=== PATIENT | male | born 1945 | race Caucasian/White ===

== ENCOUNTER 2017-12-13 12:59 | Emergency (ER) | payer MEDICARE ==
[2017-12-13 14:08] LABS: BASOPHILS % (AUTO) 0.5 %; EOSINOPHILS # (AUTO) 0.1 10^3/uL (0.0-0.7); EOSINOPHILS % (AUTO) 1.5 %; HGB - HEMOGLOBIN 15.4 g/dL (14.0-18.0); LYMPHOCYTES # (AUTO) 1.2 10^3/uL (1.5-3.5); LYMPHOCYTES % (AUTO) 13.4 %; MEAN CORPUSCULAR HGB CONC 33.3 g/dL (32.0-36.0); MEAN PLATELET VOLUME 7.6 fL (7.4-11.4); MONOCYTES # (AUTO) 0.4 10^3/uL (0.0-1.0); MONOCYTES % (AUTO) 4.9 %; NEUTROPHILS # (AUTO) 7.2 10^3/uL (1.5-6.6); NEUTROPHILS % (AUTO) 79.7 %; PLT - PLATELET COUNT 213 10^3/uL (130-450); RED BLOOD COUNT 4.95 10^6/uL (4.70-6.10); RED CELL DISTRIBUTION WIDTH 14.4 % (12.0-15.0)
[2017-12-13 14:25] LABS: BILIRUBIN,URINE NEGATIVE (NEGATIVE); GLUCOSE, URINE (UA) NEGATIVE (NEGATIVE); KETONES,URINE (UA) TRACE mg/dL (NEGATIVE); LEUKOCYTE ESTERASE, URINE TRACE (NEGATIVE); NITRITE,URINE NEGATIVE (NEGATIVE); OCCULT BLOOD,URINE LARGE (NEGATIVE); PH,URINE 5.5 PH (5.0-7.5); PROTEIN,URINE 30 mg/dL (NEGATIVE); UROBILINOGEN,URINE 0.2 (NORMAL) E.U./dL (NORMAL)
[2017-12-13 14:27] LABS: CLARITY,URINE CLOUDY (CLEAR)
[2017-12-13 14:37] LABS: ALBUMIN 3.9 g/dL (3.2-5.5); ALBUMIN/GLOBULIN RATIO 1.1 (1.0-2.2); BILIRUBIN,TOTAL 0.8 mg/dL (0.2-1.0); CREATININE 1.2 mg/dL (0.6-1.2); TOTAL PROTEIN 7.3 g/dL (6.7-8.2)
[2017-12-13 14:41] LABS: BACTERIA,URINE Rare /HPF (None Seen); MUCUS,URINE Marked Strands; RBC,URINE TNTC /HPF (0-5); SQUAMOUS EPITHELIAL CELL,UR RARE Squamous (<= Few)
[2017-12-13 15:08] LABS: CALCIUM 9.3 mg/dL (8.5-10.3)
[2017-12-13] MEDS ORDERED: IBUPROFEN 800 MG TABLET PO STA (15:22)
--- NOTE | 2017-12-13 15:24 | ED Physician Documentation ---
PD HPI ABD PAIN - Stated complaint Stated Complaint: BACK PX/SHAKING - Chief complaint Chief Complaint: Abd Pain - History obtained from History obtained from: Patient, Family () - History of Present Illness Timing - onset: Today (Sudden onset L flank pain to L groin and severe pain for a while, now better, but not gone. Was nauseous and shaky, thse are gone.) - Additional information Additional information: He has had small kidney stones in the past but none recently, never needed see a urologist or have an intervention. Review of Systems Ten Systems: 10 systems reviewed and negative Constitutional: reports: Sweats. denies: Fever, Chills Cardiac: denies: Chest pain / pressure, Palpitations Respiratory: denies: Dyspnea, Cough PD PAST MEDICAL HISTORY - Past Medical History Cardiovascular: Hypertension, High cholesterol Respiratory: Pneumonia - Past Surgical History Past Surgical History: No - Present Medications Home Medications: Ambulatory Orders Medication Instructions Recorded Confirmed Aspirin 81 mg PO DAILY 02/27/16 02/27/16 Mv,Ca,Iron,Min/FA/Phytosterol 1 tab PO DAILY 02/27/16 02/27/16 [[facility] Heart Tab] Simvastatin [Zocor] 40 mg PO DAILY 02/27/16 02/27/16 HYDROcod/ACETAM 5/325 [Canones 5/325] 1 - 2 ea PO Q6H PRN #15 tablet 12/13/17 Ibuprofen [Motrin] 800 mg PO Q8H PRN #30 tablet 12/13/17 Lisinopril 12/13/17 12/13/17 Ondansetron HCl [Zofran] 4 mg PO Q6H PRN #10 tablet 12/13/17 Tamsulosin [Flomax] 0.4 mg PO DAILY #14 capsule 12/13/17 - Allergies Allergies/Adverse Reactions: Allergies Allergy/AdvReac Type Severity Reaction Status Date / Time Penicillins Allergy Rash Verified 12/13/17 13:13 - Social History Does the pt smoke?: No Smoking Status: Never smoker Does the pt drink ETOH?: Yes Does the pt have substance abuse?: No - Family History Family history: reports: Non contributory - Immunizations Immunizations are current?: Yes PD ED PE NORMAL - Vitals Vital signs reviewed: Yes - General General: Alert and oriented X 3, No acute distress - HEENT HEENT: PERRL, EOMI - Neck Neck: Supple, no meningeal sign, No bony TTP - Cardiac Cardiac: RRR, No murmur - Respiratory Respiratory: No respiratory distress, Clear bilaterally - Abdomen Abdomen: Normal bowel sounds, Soft, Non tender - Back Back: No CVA TTP, No spinal TTP - Extremities Extremities: No edema, No calf tenderness / cord - Neuro Neuro: Alert and oriented X 3, Normal speech - Psych Psych: Normal mood, Normal affect Results - Vitals Vitals: Vital Signs - 24 hr 12/13/17 12/13/17 13:11 16:16 Temperature 36 C L Heart Rate 86 82 Respiratory 20 18 Rate Blood Pressure 165/96 H 134/98 H O2 Saturation 100 98 Oxygen O2 Source Room air - Labs Labs: Laboratory Tests 12/13/17 12/13/17 12/13/17 13:25 14:00 14:00 WBC 9.0 RBC 4.95 Hgb 15.4 Hct 46.1 MCV 93.0 MCH 31.0 MCHC 33.3 RDW 14.4 Plt Count 213 MPV 7.6 Neut # (Auto) 7.2 H Lymph # (Auto) 1.[address] # (Auto) 0.4 Eos # (Auto) 0.1 Baso # (Auto) 0.0 Absolute Nucleated RBC 0.00 Nucleated RBC % 0.0 Sodium 136 Potassium 3.6 Chloride 101 Carbon Dioxide 28 Anion Gap 7.0 BUN 25 H Creatinine 1.2 Estimated GFR (MDRD) 60 L Glucose 101 H Calcium 9.3 Total Bilirubin 0.8 AST 19 ALT 17 Alkaline Phosphatase 64 Total Protein 7.3 Albumin 3.9 Globulin 3.4 Albumin/Globulin Ratio 1.1 Lipase 42 Urine Color DARK YELLOW Urine Clarity CLOUDY Urine pH 5.5 Ur Specific [place] 1.025 Urine Protein 30 H Urine Glucose (UA) NEGATIVE Urine Ketones TRACE Urine Occult Blood LARGE H Urine Nitrite NEGATIVE Urine Bilirubin NEGATIVE Urine Urobilinogen 0.2 (NORMAL) Ur Leukocyte Esterase TRACE H Urine RBC TNTC H Urine WBC 4-5 Ur Squamous Epith Cells RARE Squamous Urine Bacteria Rare Urine Mucus Marked Strands Ur Microscopic Review INDICATED Urine Culture Comments INDICATED - Rads (name of study) CT KUB Radiology: EMP read contemporaneously (Mild left hydronephrosis due to a 5 mm calculus near the UV J. Also nonobstructing nephrolithiasis. Incidental findings include diverticulosis and a small hiatal hernia.) PD MEDICAL DECISION MAKING - ED course ED course: 71-year-old gentleman with acute pain episode that seems most consistent with renal colic. Pain mostly gone on arrival here and he was comfortable after ibuprofen. He has Tellez and will follow up with his PCM for referral to a urologist. - Sepsis Event Vital Signs: Vital Signs - 24 hr 12/13/17 12/13/17 13:11 16:16 Temperature 36 C L Heart Rate 86 82 Respiratory 20 18 Rate Blood Pressure 165/96 H 134/98 H O2 Saturation 100 98 Oxygen O2 Source Room air Departure - Departure Disposition: Home, Self Care Clinical Impression: Renal colic Condition: Good Instructions: ED Stone Renal W Colic Prescriptions: HYDROcod/ACETAM 5/325 [Canones 5/325] 1 - 2 ea PO Q6H PRN #15 tablet PRN Reason: Pain Ibuprofen [Motrin] 800 mg PO Q8H PRN #30 tablet PRN Reason: PAIN &/OR FEVER Ondansetron HCl [Zofran] 4 mg PO Q6H PRN #10 tablet PRN Reason: Nausea / Vomiting Tamsulosin [Flomax] 0.4 mg PO DAILY #14 capsule Comments: Call your doctor to arrange a follow-up appointment, make the next available appointment. In the interim, return anytime if worse or if new symptoms develop. Your blood pressure was elevated today on check into the emergency department. This does not mean that you have hypertension, it is a common phenomenon to come to the emergency department and have elevated blood pressure. I recommend that you see your primary care physician within the week to have it rechecked when you are feeling better. Do not drink or drive while taking narcotic pain medication. Note that many narcotic pain relievers also contain Tylenol/acetaminophen. Please ensure that your total dose of acetaminophen from all sources does not exceed 3 g (3000 mg) per day. You may get constipated while on this medication. Take a stool softener such as Colace twice a day while you are on it. Also add an [id number] laxative such as senna or MiraLAX on any day that you do not have a bowel movement. If you received a narcotic pain medication or sedative while in the emergency department, do not drive for the next 24 hours.
[2017-12-13] MEDS ORDERED: TAMSULOSIN 0.4 MG CAPSULE PO STA (16:06)
[2017-12-13 16:17] VITALS: BP 134/98
--- NOTE | 2017-12-13 16:37 | CT Report ---
Procedure Date: 12/13/2017 Accession Number: [id number] / [id number] Procedure: CT - Abdomen/Pelvis W/O CPT Code: FULL RESULT: EXAM: CT ABDOMEN AND PELVIS (CT KUB) EXAM DATE: 12/13/2017 03:51 PM. CLINICAL HISTORY: Left flank pain hematuria. COMPARISONS: None. TECHNIQUE: Routine axial helical CT imaging was performed through the abdomen and pelvis without IV contrast. Reconstructions: Coronal and sagittal. In accordance with CT protocol optimization, one or more of the following dose reduction techniques were utilized for this exam: automated exposure control, adjustment of mA and/or KV based on patient size, or use of iterative reconstructive technique. FINDINGS: Lung Bases: Coronary artery calcifications and small hiatal hernia. No mass, consolidation or effusion. Right Kidney/Ureter: No stones, hydronephrosis or hydroureter. Mild perinephric stranding, symmetric with the left. Left Kidney/Ureter: Mild hydroureteronephrosis. This is due to an obstructing 5 mm calculus a few centimeters upstream from the ureterovesical junction (3/115). At least 4 additional nonobstructing left renal collecting system calculi present measuring up to 5 mm. Mild perinephric stranding is nonspecific and symmetric with the right. Other Solid Organs: Noncontrast images of the solid organs are grossly unremarkable. Gallbladder/Bile Ducts: Unremarkable. Peritoneal Cavity: No free fluid, free air or clara adenopathy. No evidence of bowel obstruction or inflammation. Stool burden is within normal limits. Moderate distal colonic diverticulosis without acute diverticulitis. Appendix is normal. Pelvic Organs: No bladder stones or wall thickening. Noncontrast images of the visualized pelvic organs are unremarkable. Vasculature: No abdominal aortic aneurysm. Calcific atherosclerosis. Other: Thoracic DISH with thoracolumbar degenerative spondylosis, greatest and severe disk height loss at L5-S1. Tiny fat-containing periumbilical hernia. Small right and moderate left fat-containing inguinal hernias extending to the level of the scrotum. IMPRESSION: 1. Mild left hydroureteronephrosis due to an obstructing 5 mm calculus a few centimeters upstream from the ureterovesical junction. Additional nonobstructing left nephrolithiasis. 2. Additional findings as above including distal colonic diverticulosis and small hiatal hernia. [facility]
== END 2017-12-13 16:45 | disposition home or self-care (01) ==
LOC: ED 12:59
DX: N13.2 Hydronephrosis with renal and ureteral calculous obstruction (principal); I10 Essential (primary) hypertension; Z79.82 Long term (current) use of aspirin
CPT/HCPCS: 36415; 74176; 80053; 81001; 83690; 85025; 87086; 99282; 99284; A9270; 81003